=== PATIENT | male | born 1940 | race Caucasian/White ===

== ENCOUNTER 2016-11-24 23:37 | Emergency (ER) | payer MEDICARE, MEDICAID ==
[~2016-11-24] VITALS: Ht 162.6 cm; Wt 72.0 kg
[2016-11-25] MEDS ORDERED: TETANUS, DIPHTHERIA, PERTUSSIS VAC/PF 0.5ML (>7YR OLD) IM ONE (00:30)
[2016-11-25] MEDS ORDERED: LIDOCAINE HCL 1%/EPI 1:200,000 30 ML VIAL MC ONE (00:30)
[2016-11-25] MEDS ORDERED: BACITRACIN ZINC OINT UDPKT TOP ONE (00:30)
[2016-11-25 02:50] VITALS: BP 151/79
== END 2016-11-25 03:11 | disposition home or self-care (01) ==
LOC: ER 23:37
DX: S01.112A Laceration without foreign body of left eyelid and periocular area, initial encounter (principal); I10 Essential (primary) hypertension; W22.8XXA Striking against or struck by other objects, initial encounter; Y93.84 Activity, sleeping; Y92.89 Other specified places as the place of occurrence of the external cause; Y99.8 Other external cause status
CPT/HCPCS: 12013; 70450; 70486; 99284

== ENCOUNTER 2016-11-26 16:59 | Emergency (ER) | payer MEDICARE, MEDICAID ==
[~2016-11-26] VITALS: Ht 170.2 cm; Wt 69.9 kg
[2016-11-26 20:07] VITALS: BP 132/76
== END 2016-11-26 23:00 | disposition left against medical advice (07) ==
LOC: ER 20:25
DX: Z48.01 Encounter for change or removal of surgical wound dressing (principal); Z53.21 Procedure and treatment not carried out due to patient leaving prior to being seen by health care provider